=== PATIENT | male | born 1980 | race Two or more races ===

== ENCOUNTER 2023-12-02 17:21 | Emergency (ER) | payer SELFPAY ==
[~2023-12-02] VITALS: Ht 175.3 cm; Wt 70.0 kg
[2023-12-02 17:24] VITALS: TEMP 98.5; O2SAT 98
[2023-12-03 03:10] VITALS: BP 136/93; PULSE 67; RESP 8; O2SAT 99
== END 2023-12-03 03:10 | disposition home or self-care (01) ==
LOC: ER 17:21
DX: T40.2X1A Poisoning by other opioids, accidental (unintentional), initial encounter (principal); F17.210 Nicotine dependence, cigarettes, uncomplicated; X58.XXXA Exposure to other specified factors, initial encounter
CPT/HCPCS: 82962; 99285; Z7610